=== PATIENT | male | born 1995 | race African-American/Black ===

== ENCOUNTER 2017-02-18 22:50 | Emergency (ER) | payer SELFPAY ==
[~2017-02-18] VITALS: Ht 165.1 cm; Wt 88.5 kg
[2017-02-18 23:01] VITALS: BP 144/70
--- NOTE | 2017-02-18 23:05 | NUR ---
TP MONTY OLIVER, EKG DONE, A/W FOR BED, ERMD NOTED
--- NOTE | 2017-02-19 00:50 | NUR ---
21 Y/O M W/C/O MID CHEST/MID BACK PAIN, FLU LIKE SYMPTOMS AND COUGH X 12 HRS. PT DENIES ANY MED HX, NO S/S OF DISTRESS NOTED. ER MD MADE AWARE.
[2017-02-19] MEDS ORDERED: IBUPROFEN 800 MG TAB PO ONE (01:10)
[2017-02-19 01:35] VITALS: BP 125/84
--- NOTE | 2017-02-19 01:35 | NUR ---
Patient discharged with v/s stable. Written and verbal after care instructions given and explained. Patient alert, oriented and verbalized understanding of instructions. Ambulatory with steady gait. All questions addressed prior to discharge. ID band removed. Patient advised to follow up with PMD. Rx of MOTRIN, AND PROMETHAZINE given. Patient educated on indication of medication including possible reaction and side effects. Opportunity to ask questions provided and answered.
== END 2017-02-19 01:35 | disposition home or self-care (01) ==
LOC: MED 22:50
DX: J06.9 Acute upper respiratory infection, unspecified (principal)
CPT/HCPCS: 99283